=== PATIENT | male | born 2005 | race Caucasian/White ===

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

== ENCOUNTER 2023-01-15 00:05 | Emergency (ER) | payer OTHER ==
[2023-01-15 00:18] VITALS: BP 133/91; PULSE 57; RESP 18; TEMP 97.8; BMI 29.9
[2023-01-15] MEDS ORDERED: predniSONE 20 MG TABLET (UD) PO ONE (00:34)
[2023-01-15] MEDS ORDERED: LORATADINE 10 MG TABLET PO ONE (00:35)
[2023-01-15] MEDS: ALBUTEROL SO4 2.5/IPRATROPIUM 0.5 INH SOL 3 ML VIAL.NEB. NEB SCH ×3 (00:35→01:05)
[2023-01-15] MEDS ORDERED: predniSONE 20 MG TABLET (UD) ONE (00:42)
[2023-01-15] MEDS ORDERED: ALBUTEROL SO4 2.5/IPRATROPIUM 0.5 INH SOL 3 ML VIAL.NEB. NEB ONE (00:42)
[2023-01-15] MEDS ORDERED: LORATADINE 10 MG TABLET ONE (00:43)
== END 2023-01-15 02:49 | disposition home or self-care (01) ==
LOC: JER 00:05
PROC: 3E0F7GC Introduction of Other Therapeutic Substance into Respiratory Tract, Via Natural or Artificial Opening (ICD-10-PCS; principal; 2023-01-15)
DX: J45.998 Other asthma (principal)
CPT/HCPCS: 99283-25